=== PATIENT | male | born 1985 | race Caucasian/White ===

== ENCOUNTER 2023-01-15 07:20 | Day surgery (SDC) | payer OTHER ==
[~2023-01-15] VITALS: Ht 175.3 cm; Wt 89.8 kg
[2023-01-15] VITALS (228 sets, daily range): BP systolic 75–164; BP diastolic 33–116
[2023-01-15 08:47] LABS: BASO% 0.3 % (0-3); EOS% 3.8 % (0-8); HEMATOCRIT 38.8 % (39.0-50.0); HEMOGLOBIN 12.2 g/dl (14.0-18.0); LYMPH% 32.2 % (15-41); MEAN CELL VOLUME 92.4 fL CALC (80.0-100.0); MEAN CORPUSCULAR HGB CONC 31.4 g/dL CAL (32.0-36.0); MONO% 8.2 % (2-13); NEUT# 4.19 thou/uL (1.82-7.42); NEUT% 55.5 % (42-76); RED BLOOD COUNT 4.2 mill/uL (4.70-6.10); RED CELL DISTRI WIDTH 12.2 % (11.5-15.5)
[2023-01-15 08:56] LABS: ALBUMIN 4.5 g/dL (3.2-5.0); ALKALINE PHOSPHATASE 91 u/l (38-126); ANION GAP 11 (6-22 (CALC)); BILIRUBIN, TOTAL 0.4 mg/dL (0.2-1.3); BUN 13 mg/dL (9-20); BUN/CREATININE RATIO 15 (12-20 (CALC)); CARBON DIOXIDE 35 mmol/l (22-30); CHLORIDE 98 mmol/l (95-108); CREATININE 0.9 mg/dL (0.7-1.3); GFR FOR AFR.AMER. > 60 ML/MIN (>=60 (CALC)); GFR OTHER RACES > 60 ML/MIN (>=60 (CALC)); SGOT/AST 31 u/l (17-59); SODIUM 140 mmol/l (137-146); TOTAL PROTEIN 8.1 g/dL (6.3-8.2)
[2023-01-15] MEDS ORDERED: KLONOPIN2 MG PO (15:49)
[2023-01-15] MEDS ORDERED: CLONIDINE0.1 MG PO (15:49)
[2023-01-15] MEDS ORDERED: NALTREXONE50 MG PO (15:49)
[2023-01-16 04:00] VITALS: BP 135/69
[2023-01-16 06:38] LABS: BASO% 0.1 % (0-3); HEMOGLOBIN 13.9 g/dl (14.0-18.0); IMMATURE GRANULOCYTES 0.2 % (0.0-5.0); MEAN CELL VOLUME 87.9 fL CALC (80.0-100.0); MEAN CORPUSCULAR HGB 29.1 pG CALC (26.0-32.0); MEAN CORPUSCULAR HGB CONC 33.1 g/dL CAL (32.0-36.0); MONO% 5.2 % (2-13); NEUT# 18.21 thou/uL (1.82-7.42); NEUT% 88.5 % (42-76); RED BLOOD COUNT 4.78 mill/uL (4.70-6.10)
[2023-01-16 07:10] LABS: ALBUMIN 4.7 g/dL (3.2-5.0); ALKALINE PHOSPHATASE 117 u/l (38-126); ANION GAP 16 (6-22 (CALC)); BILIRUBIN, TOTAL 0.4 mg/dL (0.2-1.3); BUN 13 mg/dL (9-20); BUN/CREATININE RATIO 18 (12-20 (CALC)); CHLORIDE 104 mmol/l (95-108); CREATININE 0.7 mg/dL (0.7-1.3); GFR FOR AFR.AMER. > 60 ML/MIN (>=60 (CALC)); GFR OTHER RACES > 60 ML/MIN (>=60 (CALC)); MAGNESIUM 2.3 mg/dL (1.6-2.3); POTASSIUM 3.6 mmol/l (3.5-5.1); SGOT/AST 36 u/l (17-59); SODIUM 141 mmol/l (137-146); TOTAL PROTEIN 8.6 g/dL (6.3-8.2)
[2023-01-16 07:11] LABS: CARBON DIOXIDE 25 mmol/l (22-30)
[2023-01-16 07:37] VITALS: BP 131/48
[2023-01-16 07:51] VITALS: BP 131/48
== END 2023-01-16 16:40 | disposition home or self-care (01) | DRG 897 ==
LOC: MS2 07:20 → ANR 07:20 → MS2 18:22 → ANR 01-16 16:40 → MS2 01-16 16:40
PROVIDERS: ATTEND Anesthesiology
DX: F11.20 Opioid dependence, uncomplicated (principal)
CPT/HCPCS: J0131; J1100; J2060; J2354; J3475